=== PATIENT | female | born 1945 | race Caucasian/White ===

== ENCOUNTER → 2024-03-11 07:26 | Outpatient (REF) | payer MEDICARE, SELFPAY | LOC: RAD 07:26 | PROVIDERS: ATTENDING PHYSICIAN Nurse Practitioner | DX: R91.1 Solitary pulmonary nodule (principal); Z72.0 Tobacco use | CPT/HCPCS: 71250 ==

== ENCOUNTER → 2024-04-27 06:51 | Outpatient (REF) | payer MEDICARE, SELFPAY | LOC: RAD 06:51 | PROVIDERS: ATTENDING PHYSICIAN Internal Medicine Cardiovascular Disease; FAMILY PHYSICIAN Nurse Practitioner | DX: R09.89 Other specified symptoms and signs involving the circulatory and respiratory systems (principal); I70.0 Atherosclerosis of aorta | CPT/HCPCS: 76770 ==

== ENCOUNTER → 2024-12-08 08:49 | Outpatient (REF) | payer MEDICARE, SELFPAY | LOC: RAD 08:49 | PROVIDERS: ATTENDING PHYSICIAN Surgery Vascular Surgery; FAMILY PHYSICIAN Nurse Practitioner | DX: I70.0 Atherosclerosis of aorta (principal) | CPT/HCPCS: 93922; 93978 ==

== ENCOUNTER → 2025-06-09 14:37 | Outpatient (REF) | payer MEDICARE, SELFPAY | LOC: RAD 14:37 | PROVIDERS: ATTENDING PHYSICIAN Nurse Practitioner | DX: M85.89 Other specified disorders of bone density and structure, multiple sites (principal); Z00.00 Encounter for general adult medical examination without abnormal findings; Z12.31 Encounter for screening mammogram for malignant neoplasm of breast | CPT/HCPCS: 77080 ==

== ENCOUNTER → 2025-06-21 08:52 | Outpatient (REF) | payer MEDICARE, SELFPAY | LOC: RAD 08:52 | PROVIDERS: ATTENDING PHYSICIAN Physician Assistant; FAMILY PHYSICIAN Nurse Practitioner | DX: Q25.1 Coarctation of aorta (principal); I70.0 Atherosclerosis of aorta | CPT/HCPCS: 93922; 93978 ==